=== PATIENT | female | born 1990 | race Caucasian/White ===

== ENCOUNTER 2019-12-01 13:46 | Emergency (ER) | payer BC ==
[2019-12-01 15:09] VITALS: BP 110/56
--- NOTE | 2019-12-01 15:57 | UC ---
Throat Pain/Nasal Domenic HPI - HPI Summary HPI Summary: 29 yo [employer] [facility] [facility] [employer] employee with one week hx of congestion, now progressing to plugged ears, sinus congestion and headache, and low grade fever. Some cough, but not short of breath or having chest pain. No nausea or vomiting or diarrhea. - History of Current Complaint Chief Complaint: UCGeneralIllness Stated Complaint: SINUS ISSUE Time Seen by Provider: 12/01/19 15:01 Hx Obtained From: Patient Hx Last Menstrual Period: 11/13/19 Onset/Duration: Gradual Onset Severity: Moderate Pain Intensity: 7 Cough: Nonproductive Associated Signs & Symptoms: Positive: Sinus Discomfort, Nasal Discharge, Fever - Epiglottits Risk Factors Epiglottis Risk Factors: Negative - Allergies/Home Medications Allergies/Adverse Reactions: Allergies Allergy/AdvReac Type Severity Reaction Status Date / Time No Known Allergies Allergy Verified 12/01/19 15:09 Home Medications: Home Medications Amoxicillin/Clavulanate TAB* [Augmentin TAB 875*] 875 mg PO BID #20 tab [Rx] PMH/Surg Hx/FS Hx/Imm Hx Previously Healthy: Yes - Surgical History Surgical History: None - Family History Known Family History: Positive: None - parents living and healthy, Other - longevity in the family - Social History Occupation: Employed Full-time Lives: With Family Alcohol Use: None Substance Use Type: None Smoking Status (MU): Never Smoked Tobacco - Immunization History Most Recent Influenza Vaccination: 05/2018 Most Recent Pneumonia Vaccination: none Review of Systems All Other Systems Reviewed And Are Negative: Yes Constitutional: Positive: Fever, Fatigue Skin: Positive: Negative Eyes: Positive: Negative ENT: Positive: Sore Throat, Ear Ache, Sinus Congestion, Sinus Pain/Tenderness Respiratory: Positive: Cough Cardiovascular: Positive: Negative Gastrointestinal: Positive: Negative Genitourinary: Positive: Negative Motor: Positive: Negative Neurovascular: Positive: Negative Musculoskeletal: Positive: Arthralgia Neurological/Mental Status: Positive: Headache Psychological: Positive: Negative Is Patient Immunocompromised?: No Physical Exam Triage Information Reviewed: Yes Appearance: Ill-Appearing - looks mildly unwell, Thin Vital Signs: Initial Vital Signs Temp 100.0 F 12/01/19 15:04 Pulse 77 12/01/19 15:04 Resp 16 12/01/19 15:04 BP 110/56 12/01/19 15:04 Pulse Ox 98 12/01/19 15:04 Eyes: Positive: Conjunctiva Clear ENT: Positive: Pharyngeal erythema, TM dull - bilateral serous fluid Neck: Positive: Supple, Nontender, No Lymphadenopathy Respiratory: Positive: Lungs clear, Normal breath sounds Cardiovascular: Positive: RRR, No Murmur Musculoskeletal Exam: Normal Neurological Exam: Normal Psychological Exam: Normal Skin Exam: Normal Throat Pain/Nasal Course/Dx - Course Course Of Treatment: Continue use of symptomatic treatment with sudafed. Begin augmentin for treatment of sinusitis. Increase rest and fluids. - Differential Dx/Diagnosis Differential Diagnosis/HQI/PQRI: Influenza, Pharyngitis, Sinusitis, URI Provider Diagnosis: Acute sinusitis Discharge ED - Sign-Out/Discharge Documenting (check all that apply): Patient Departure All imaging exams completed and their final reports reviewed: No Studies - Discharge Plan Condition: Stable Disposition: HOME Prescriptions: Amoxicillin/Clavulanate TAB* [Augmentin TAB 875*] 875 mg PO BID #20 tab Patient Education Materials: Sinusitis (ED) Forms: *Work Release Referrals: Rodolfo Jacobsen MD [Primary Care Provider] - Additional Instructions: Begin augmentin for treatment of sinusitis. Increase rest and fluids, and continue sudafed and flonase for relief of sinus pressure. Addition of guaifensin 600mg twice daily can sometimes help to relieve ear pressure. - Billing Disposition and Condition Condition: STABLE Disposition: Home
[2019-12-01 17:21] LABS: Influenza A Molecular Negative (Negative); Influenza B Molecular Negative (Negative)
== END 2019-12-01 16:15 | disposition home or self-care (01) ==
LOC: UCEAST 13:46
DX: J01.90 Acute sinusitis, unspecified (principal); R05 Cough; R53.83 Other fatigue
CPT/HCPCS: 99212; G0463